=== PATIENT | female | born 1950 | race Caucasian/White ===

== ENCOUNTER 2022-06-27 08:43 | Outpatient (CLI) | payer MEDICARE, BC | END 2022-06-27 08:44 | disposition home or self-care (01) | LOC: CSHCT 08:43 | PROVIDERS: ATTEND Orthopaedic Surgery Hand Surgery | DX: S52.515D Nondisplaced fracture of left radial styloid process, subsequent encounter for closed fracture with routine healing (principal); S62.122D Displaced fracture of lunate [semilunar], left wrist, subsequent encounter for fracture with routine healing; M67.834 Other specified disorders of tendon, left wrist ==